=== PATIENT | female | born 1985 | race Caucasian/White ===

== ENCOUNTER → 2016-05-10 | Outpatient (CLI) | payer OTHER | LOC: BHSO 09:01 | DX: F33.1 Major depressive disorder, recurrent, moderate (principal) ==

== ENCOUNTER → 2016-06-14 | Outpatient (CLI) | payer OTHER | LOC: BHSO 14:36 | DX: F33.41 Major depressive disorder, recurrent, in partial remission (principal) ==

== ENCOUNTER → 2016-08-02 | Outpatient (CLI) | payer OTHER | LOC: BHSO 10:23 | DX: F33.42 Major depressive disorder, recurrent, in full remission (principal) ==

== ENCOUNTER → 2016-11-03 | Outpatient (CLI) | payer OTHER | LOC: BHSO 11:03 | DX: F33.41 Major depressive disorder, recurrent, in partial remission (principal) ==

== ENCOUNTER → 2017-01-07 | Outpatient (CLI) | payer OTHER | LOC: BHSO 11:00 | DX: F33.41 Major depressive disorder, recurrent, in partial remission (principal) ==